=== PATIENT | female | born 1995 | race African-American/Black ===

== ENCOUNTER 2022-07-14 09:55 | Inpatient (IN) ==
[2022-07-14 10:52] LABS: Bilirubin,Urine Negative (Negative); Blood, Urine Negative (Negative); Glucose,Urine (UA) Negative (Negative); Ketones,Urine Negative (Negative); Nitrite,Urine Negative (Negative); Protein,Urine Negative (Negative); Urine Appearance Clear (Clear); Urine Color Yellow (Yellow); Urine Urobilinogen 0.2 eU/dL (<2.0)
[2022-07-14] MEDS: LACTATED RINGERS 1,000 ML IV SCH ×2 (13:35→21:29)
[2022-07-14] MEDS ORDERED: miSOPROStoL 200 MCG TABLET RECTAL PRN (17:53)
[2022-07-14] MEDS ORDERED: CARBOPROST TROMETHAMINE 250 MCG/ML AMP IM PRN (17:53)
[2022-07-14] MEDS ORDERED: METHYLERGONOVINE 0.2 MG/1 ML AMP IM PRN (17:53)
[2022-07-14] MEDS ORDERED: TRANEXAMIC ACID 1,000 MG in SODIUM CHLORIDE 0.9% 100 ML IV PRN (17:53)
[2022-07-14] MEDS ORDERED: ONDANSETRON 4 MG/2 ML VIAL IV PRN (17:53)
[2022-07-14] MEDS ORDERED: BUTORPHANOL 2 MG/ML VIAL IV PRN (17:53)
[2022-07-14] MEDS ORDERED: OXYTOCIN/LR 20 UNIT/1,000 ML BAG IV ONE (17:53)
[2022-07-14] MEDS ORDERED: MEPERIDINE 50 MG/1 ML VIAL IV PRN (17:53)
[2022-07-14 18:47] LABS: Basophils % 0.1 % (0.0-0.8); Eosinophils # 0.7 10*3/uL (0.0-0.87); Eosinophils % 7.7 % (0.00-10.9); Hematocrit 33.3 VOL% (35.7-47.0); Hemoglobin 11.1 GM/DL (12.0-16.0); Immature Granulocytes % 0.5 %; Immature Granulocytes Absolute 0.04 #; Lymphocytes # 2.7 10*3/uL (1.4-4.0); Lymphocytes % 31.2 % (21.3-54.2); Mean Corpuscular HGB Conc 33.3 GM/DL (32-36); Mean Corpuscular Volume 94.9 FL (87-102); Mean Platelet Volume 11.3 FL (9.6-12.0); Monocytes # 0.8 10*3/uL (0.11-0.8); Monocytes % 8.8 % (1.7-12.7); Neutrophils % 51.7 % (38.7-73.9); Platelet Count 236 T/CUMM (130-400); Red Blood Count 3.51 MC/CUMM (3.8-5.5); Red Cell Distribution Width 13.2 % (9.3-17.3); White Blood Count 8.5 T/CUMM (4-12)
[2022-07-14] MEDS ORDERED: AMPICILLIN INJ 2,000 MG in SODIUM CHLORIDE 0.9% 100 ML IV ONE (20:00)
[2022-07-15] MEDS: AMPICILLIN INJ 1,000 MG in SODIUM CHLORIDE 0.9% 100 ML IV SCH ×4 (01:24→21:21)
[2022-07-15] MEDS ORDERED: ePHEDrine 50 MG/ML VIAL IV PRN (02:00)
[2022-07-15] MEDS ORDERED: ONDANSETRON 4 MG/2 ML VIAL IV ONE (02:00)
[2022-07-15] MEDS ORDERED: FAMOTIDINE 20 MG/2 ML VIAL IV ONE (02:00)
[2022-07-15] MEDS ORDERED: diphenhydrAMINE 50 MG/1 ML VIAL IV PRN ×2 (02:00)
[2022-07-15] MEDS ORDERED: CITRIC ACID/SODIUM CITRATE 30 ML UDCUP PO ONE (02:00)
[2022-07-15] MEDS ORDERED: hydrOXYzine HCL 25 MG/1 ML VIAL IM PRN (02:00)
[2022-07-15] MEDS ORDERED: NALOXONE 0.4 MG/ML VIAL IV PRN (02:00)
[2022-07-15] MEDS ORDERED: PROMETHAZINE 25 MG/1 ML VIAL IM ONE (02:00)
[2022-07-15] MEDS: fentaNYL 2 MCG/ROPIV 0.2% EPID 100 ML EPIDURAL SCH ×2 (02:57→08:52)
[2022-07-15 04:15] LABS: Bacteria,Urine Occasional /HPF (Few); RBC,Urine 1 /HPF (0-4); Squamous Epithelial Cell,Urine Occasional /HPF (0-10)
[2022-07-15 04:16] LABS: Bilirubin,Urine Negative (Negative); Blood, Urine Negative (Negative); Glucose,Urine (UA) Negative (Negative); Ketones,Urine Negative (Negative); Nitrite,Urine Negative (Negative); Protein,Urine Negative (Negative); Urine Appearance Clear (Clear); Urine Color Yellow (Yellow); Urine Urobilinogen 0.2 eU/dL (<2.0)
[2022-07-15] MEDS ORDERED: OXYTOCIN/LR 20 UNIT/1,000 ML BAG IV SCH (04:30)
[2022-07-15] MEDS: LACTATED RINGERS 1,000 ML IV SCH (08:15)
[2022-07-15] MEDS ORDERED: TRANEXAMIC ACID 1,000 MG/10 ML VIAL ONE (09:27)
[2022-07-15] MEDS ORDERED: miSOPROStoL 200 MCG TABLET ONE (09:27)
[2022-07-15] MEDS ORDERED: METHYLERGONOVINE 0.2 MG/1 ML AMP ONE (09:27)
[2022-07-15] MEDS ORDERED: SODIUM CHLORIDE 0.9% 0 ML IV ONE (09:27)
[2022-07-15] MEDS ORDERED: CARBOPROST TROMETHAMINE 250 MCG/ML AMP IM ONE (09:29)
[2022-07-15 11:31] LABS: Cord Venous Blood HCO3 24.4 MMOL/L; Cord Venous Blood PCO2 45.2 MMHG; Cord Venous Blood PO2 36.8
[2022-07-15] MEDS ORDERED: LANOLIN 50% CREAM 0.3 OZ TUBE TOP PRN (15:47)
[2022-07-15] MEDS ORDERED: BENZOCAINE 20%/MENTHOL 0.5% SPRAY 56 GM CAN TOP PRN (15:47)
[2022-07-15] MEDS ORDERED: ONDANSETRON 4 MG/2 ML VIAL IV PRN (15:47)
[2022-07-15] MEDS ORDERED: oxyCODONE/ACETAMINOPHEN 5-325 MG TABLET PO PRN ×2 (15:47)
[2022-07-15] MEDS ORDERED: RHO(D) IMMUNE GLOBULIN 300 MCG SYRINGE IM ONE (15:47)
[2022-07-15] MEDS ORDERED: MEASLES/MUMPS/RUBELLA VACCINE 0.5 ML VIAL SUBCUT ONE (15:47)
[2022-07-15] MEDS ORDERED: ACETAMINOPHEN 325 MG TABLET PO PRN (15:47)
[2022-07-15] MEDS ORDERED: HYDROCORTISONE 2.5% RECTAL CREAM 30 GM TUBE TOP PRN (15:47)
[2022-07-15] MEDS ORDERED: OXYTOCIN/LR 20 UNIT/1,000 ML BAG IV ONE (15:47)
[2022-07-15] MEDS ORDERED: IBUPROFEN 800 MG TABLET PO PRN (15:47)
[2022-07-15] MEDS ORDERED: BISACODYL 10 MG SUPP RECTAL PRN (15:47)
[2022-07-15] MEDS ORDERED: DIPH/TET/ACEL PERT BOOSTER VACCINE 0.5 ML VIAL IM ONE (15:47)
[2022-07-15] MEDS ORDERED: WITCH HAZEL PADS 100/JAR TOP PRN (15:47)
[2022-07-15] MEDS: DOCUSATE SODIUM 100 MG CAPSULE PO SCH (21:21)
[2022-07-16 05:31] LABS: Basophils % 0.1 % (0.0-0.8); Eosinophils # 0.5 10*3/uL (0.0-0.87); Eosinophils % 3.8 % (0.00-10.9); Hematocrit 28.3 VOL% (35.7-47.0); Hemoglobin 9.4 GM/DL (12.0-16.0); Immature Granulocytes % 0.5 %; Immature Granulocytes Absolute 0.07 #; Lymphocytes # 2.7 10*3/uL (1.4-4.0); Lymphocytes % 19.2 % (21.3-54.2); Mean Corpuscular HGB Conc 33.2 GM/DL (32-36); Mean Corpuscular Volume 95.3 FL (87-102); Mean Platelet Volume 10.6 FL (9.6-12.0); Monocytes % 7.4 % (1.7-12.7); Platelet Count 195 T/CUMM (130-400); Red Blood Count 2.97 MC/CUMM (3.8-5.5); Red Cell Distribution Width 13.1 % (9.3-17.3); White Blood Count 14.1 T/CUMM (4-12)
[2022-07-16] MEDS: DOCUSATE SODIUM 100 MG CAPSULE PO SCH ×2 (10:10→22:26)
[2022-07-17 08:33] VITALS: BP 143/77
[2022-07-17] MEDS: DOCUSATE SODIUM 100 MG CAPSULE PO SCH (08:48)
== END 2022-07-17 11:10 | disposition home or self-care (01) | DRG 560 ==
LOC: N.LDOUT 09:55 → N.LD 09:56 → N.OB 07-15 15:43
PROVIDERS: ADMIT Specialist; ATTEND Specialist